=== PATIENT | female | born 1950 | race Asian ===

== ENCOUNTER → 2017-04-09 | Outpatient (CLI) | payer BC ==
--- NOTE | 2017-04-09 14:48 | DIAGNOSTIC IMAGING REPORT ---
LEFT ELBOW 3 VIEWS CLINICAL HISTORY: Left elbow pain. FINDINGS: 3 views of the left elbow are obtained. No prior studies are available for comparison at the time of dictation. The skeletal structures are osteopenic. No fracture is identified. Mild spurring is seen along the medial aspect of the joint space. The joint spaces are preserved. There is no joint effusion. A tiny enthesophyte is noted at the triceps insertion. Mild dorsal soft tissue swelling is noted. IMPRESSION: 1. No acute bony abnormality is seen in the left elbow. 2. Osteopenia and minimal degenerative change as above. Electronically signed by: Francisco Javier Fisher M.D. 04/09/2017 2:46 PM Dictated Date/Time: 04/09/2017 2:45 PM
== END | disposition home or self-care (01) ==
LOC: C.RAD1850 14:25
PROVIDERS: ATTEND Family Medicine
DX: M25.522 Pain in left elbow (principal); M85.80 Other specified disorders of bone density and structure, unspecified site

== ENCOUNTER → 2017-05-21 | Outpatient (CLI) | payer BC ==
--- NOTE | 2017-05-22 07:57 | MAMMOGRAPHY REPORT ---
BILATERAL DIGITAL SCREENING MAMMOGRAM TOMOSYNTHESIS WITH CAD: 05/21/2017 CLINICAL HISTORY: Routine screening. Patient has no complaints. TECHNIQUE: Breast tomosynthesis in addition to standard 2D mammography was performed. Current study was also evaluated with a Computer Aided Detection (CAD) system. COMPARISON: Comparison is made to exams dated: 03/15/2016 mammogram, 03/07/2016 mammogram, 03/04/2015 m ammogram, 01/12/2014 mammogram, 01/05/2013 mammogram, and 12/07/2011 mammogram - [facility] enter. BREAST COMPOSITION: The tissue of both breasts is heterogeneously dense, which may obscure small mas ses. FINDINGS: No suspicious mass, architectural distortion or cluster of microcalcifications is seen. IMPRESSION: ACR BI-RADS CATEGORY 1: NEGATIVE There is no mammographic evidence of malignancy. A 1 year screening mammogram is recommended. The pa tient will receive written notification of the results. Approximately 10% of breast cancers are not detected with mammography. A negative mammographic report should not delay biopsy if a clinically suggestive mass is present. Rhianna schwab/guillermo:05/21/2017 22:26:02 Rail Splitter: Emili MONDRAGON(Tito)(M), [facility] letter sent: Normal 1/2 BI-RADS Code: ACR BI-RADS Category 1: Negative
== END | disposition home or self-care (01) ==
LOC: C.MAMM 12:25
PROVIDERS: ATTEND Obstetrics & Gynecology
DX: Z12.31 Encounter for screening mammogram for malignant neoplasm of breast (principal)

== ENCOUNTER 2024-09-09 18:52 | Observation (INO) ==
[2024-09-09 19:34] LABS: Appearance Urine Clear (Clear); Bilirubin Urine Negative (Negative); Blood Urine Negative (Negative); Color Urine Yellow; Glucose Urine UA Negative (Negative); Ketones Urine Negative (Negative); Leukocyte Esterase Urine Negative (Negative); Nitrite Urine Negative (Negative); Protein Urine Negative (Negative); Specific Gravity Urine 1.009 (1.000-1.030); Urobilinogen Urine Negative (Negative); pH Urine 7.5 (4.5-7.5)
--- NOTE | 2024-09-09 19:34 | Emergency Department Note ---
Impression & Plan TIA (transient ischemic attack) ED Provider Note NAME: JACQUIE LERMA AGE: 74 SEX: F : 1950 ARRIVES VIA: Walk-In INFORMANT: Patient, ED PROVIDER(S): Andi Silva DO CHIEF COMPLAINT: Weakness HPI: The patient is a 74-year-old female who presented to the emergency department for weakness. The patient states that approximately 5:10 PM she noticed that she was having difficulty using her right leg. She states she tried to stand on it but it became very shaky and weak. She did not have any difficulty speaking. She had no facial droop or right arm weakness as far she can tell. She has a history of a stroke in the past. She does not know why she had the stroke. The patient presented to the emergency department immediately for further evaluation but she does note now that her symptoms are gone. ROS: See above HPI for pertinent positives & negatives. A total of 10 systems reviewed and were otherwise negative. PAST MEDICAL HISTORY: See Below PAST SURGICAL HISTORY: See Below FAMILY HISTORY: See Below SOCIAL HISTORY: See Below HOME MEDICATIONS: See Below ALLERGIES: See Below VITALS: See Below PHYSICAL EXAMINATION: GENERAL: Patient is awake alert in no acute distress patient is resting comfortably and showing no signs of anxiety EYES: The conjunctivae are clear. The pupils are round and reactive. EARS, NOSE, MOUTH AND THROAT: The nose is without any evidence of any deformity. NECK: The neck is nontender and supple. RESPIRATORY: Normal respiratory effort is noted there is no evidence of wheezing rhonchi or rales CARDIOVASCULAR: Regular rate and rhythm noted there no murmurs rubs or gallops normal S1 normal S2. GASTROINTESTINAL: The abdomen is soft. Abdomen is nontender. MUSCULOSKELETAL/EXTREMITIES: There is no evidence of gross deformity full range of motion is noted in the hips and shoulders. SKIN: There is no obvious evidence of any rash. There are no petechiae, pallor or cyanosis noted. NEUROLOGIC: Patient is awake alert and oriented x3. Gait was steady. Patient is able to hold each leg off of the bed for greater than 5 seconds. There was no facial droop. Speech was clear. MEDICAL DECISION MAKING: The patient is a 74-year-old female who presented to the emergency department for an evaluation of right leg weakness. The patient had an acute onset of right leg weakness. She was having difficulty ambulating. She did not have any speech changes or arm weakness. The patient has a history of stroke in the past. Given the patient's past history of stroke initially we are going to make the patient a stroke alert but the patient had no focal neurologic deficit and appears to have resolved prior to coming into the emergency department. I discussed the patient's laboratory and radiographic studies with her. The patient would appear to be a high risk TIA. For this reason I discussed her condition with the on-call [facility] hospitalist. The patient was agreeable with this plan. Triage Nursing notes reviewed. Prior medical records reviewed Vital Signs: reviewed and remarkable for no significant abnormalities Differential diagnosis: Infection, dehydration, metabolic abnormality, hypo/hyperglycemia, electrolyte disturbance, anemia, hypoxia, cardiac sources, intracerebral event, toxicologic, neurologic, as well as other pathologies. ER treatment provided: See below Diagnostics interpreted by me: ECG: EKG was obtained in the emergency department. My interpretation is normal sinus rhythm at 75 bpm. There is no ectopy. There was no acute ST segment abnormalities noted. Cardiac Monitoring: An order was placed for continuous cardiac monitoring. The monitor shows a rate of 77 bpm with sinus rhythm. Laboratory studies: As stated above and show below. Imaging studies: See below. Radiographic imaging was reviewed by myself Consultation(s): [facility]. Past Med/Surg History Problem List (Updated 09/09/24 @ 21:58 by Andi Silva DO) TIA (transient ischemic attack) (Acute) High cholesterol High blood pressure Sebaceous cyst Right forearm cellulitis (Acute) Right wrist pain (Acute) Medical History Stroke Back problem Surgical History History of removal of cyst (11/19/23) FINAL DIAGNOSIS Back, mid, excision: - Heavily inflamed epidermal cyst H/O colonoscopy (2020) H/O knee surgery (2008) Family History Sister Breast cancer Hypertension Uncle Colorectal cancer Mother Diabetes Social History Smoking Status: Never smoker Hx Alcohol Use: Yes Alcohol type: beer and wine Alcohol Intake Frequency: Monthly or Less Hx Substance Use: No Preferred Language: Argentine Communication Ability: Effective Underlay Stitcher Required: No Beliefs That Will Affect Care: None Current Living Situation: Spouse current occupational status: employed Feels Safe at Home: Yes Diet: regular during the past year weight has: remained stable Assistive Devices: None Allergies Allergies Allergy/AdvReac Type Severity Reaction Status Date / Time Penicillins Allergy Unknown RASH Verified 11/20/23 14:51 Sulfa (Sulfonamide Allergy Unknown RASH,THROAT Verified 11/20/23 14:51 Antibiotics) SWELLING Home Meds Home Medications Medication Instructions Recorded Confirmed No Known Home Medications 11/12/23 11/20/23 Results & Data (ED) Vital Signs Vital Signs - 24 hr 09/09/24 19:03 09/09/24 19:38 09/09/24 19:41 Temperature 36.8 C Temperature Source Temporal Artery Scan Pulse Rate 84 75 Pulse Rate from SpO2 Sensor Respiratory Rate 18 Respiratory Effort / Characteristics Non-Labored Respiratory Depth Normal Blood Pressure 160/96 H Blood Pressure Mean 117 Pulse Oximetry 96 98 Oxygen Delivery Method Room Air Room Air Sepsis Recent Fever Within 48 Hours No Sepsis New/Unexplained Change in Mental Status No Sepsis Action Taken by Nursing No Action Required 09/09/24 19:41 09/09/24 20:33 09/09/24 21:09 Temperature Temperature Source Pulse Rate 78 75 77 Pulse Rate from SpO2 Sensor 75 Respiratory Rate 20 16 18 Respiratory Effort / Characteristics Respiratory Depth Blood Pressure 164/108 H 129/90 139/90 Blood Pressure Mean 139 103 99 Pulse Oximetry 98 98 97 Oxygen Delivery Method Room Air Room Air Room Air Sepsis Recent Fever Within 48 Hours Sepsis New/Unexplained Change in Mental Status Sepsis Action Taken by Prison Medications Current Medication List: was personally reviewed by me Laboratory Data Attestation: I reviewed the patient's lab results. 09/09/24 19:20 09/09/24 19:20 Lab Results 09/09/24 09/09/24 09/09/24 Range/Units 19:19 19:20 19:25 WBC 5.55 (4.8-10.8) K/ul RBC 4.01 L (4.20-5.40) M/uL Hgb 12.0 (12.0-16.0) g/dl POC Hgb (12.0-16.0) g/dl Hct 35.9 L (37.0-47.0) % POC Hct (37-47) % MCV 89.5 (80.0-100.0) fL MCH 29.9 (25.0-34.0) pg MCHC 33.4 (32.0-36.0) g/dL RDW Std Deviation 42.0 (36.4-46.3) fL RDW Coeff of Gertrudis 12.7 (11.5-14.5) % Plt Count 281 (130-400) K/uL MPV 9.0 L (9.4-12.4) fL Immature Gran % (Auto) 0.2 % Neut % (Auto) 66.1 % Lymph % (Auto) 24.0 % [place] % (Auto) 7.4 % Eos % (Auto) 1.8 % Baso % (Auto) 0.5 % Neut # (Auto) 3.67 (1.40-6.50) K/uL Lymph # (Auto) 1.33 (1.20-3.40) K/uL [place] # (Auto) 0.41 (0.11-0.59) K/uL Eos # (Auto) 0.10 (0.00-0.50) K/uL Baso # (Auto) 0.03 (0.00-0.20) K/uL Immature Gran # (Auto) 0.01 (0.01-0.20) K/uL PT 9.9 (9.0-12.0) Seconds INR 0.9 (0.9-1.1) APTT 26 (21-31) Seconds PTT Ratio 1.0 POC Sodium (135-144) mmol/L Sodium 130 L (136-145) mmol/L POC Potassium (3.3-5.0) mmol/L Potassium 4.0 (3.5-5.1) mmol/L POC Chloride (101-112) mmol/L Chloride 96 L (98-107) mmol/L Carbon Dioxide 28 (21-32) mmol/L POC Total CO2 (24-31) mmol/L Anion Gap 6 (3-11) POC Anion Gap (16-25) mmol/L POC BUN (7-18) mg/dl BUN 16 (6-23) mg/dl Creatinine 0.74 (0.6-1.2) mg/dl POC Creatinine (0.6-1.3) mg/dl Est Cr Clr Drug Dosing 57.6 ml/min eGFR 84.85 BUN/Creatinine Ratio 21.6 H (10-20) Glucose 112 H (70-99(Fasting)) mg/dl POC Glucose (other) (70-99) mg/dl Calcium 9.5 (8.6-10.3) mg/dl POC Ioniz Calcium Parker (1.12-1.32) mmol/l Magnesium 2.1 (1.7-2.4) mg/dl Total Bilirubin 0.3 (0.2-1.0) mg/dl AST 19 (13-39) U/L ALT 10 (7-52) U/L Alkaline Phosphatase 79 (34-104) U/L Troponin I High Sens 7.3 (0-14) pg/ml Total Protein 7.7 (6.0-8.3) gm/dl Albumin 4.6 (3.4-5.0) gm/dl Globulin 3.1 (2.5-4.0) gm/dl Albumin/Globulin Ratio 1.5 (0.9-2) TSH 4.618 H (0.300-4.500) uIu/ml Free T4 0.94 (0.61-1.60) ng/dl Urine Color Yellow Urine Appearance Clear (Clear) Urine pH 7.5 (4.5-7.5) Ur Specific [place] 1.009 (1.000-1.030) Urine Protein Negative (Negative) Urine Glucose (UA) Negative (Negative) Urine Ketones Negative (Negative) Urine Blood Negative (Negative) Urine Nitrite Negative (Negative) Urine Bilirubin Negative (Negative) Urine Urobilinogen Negative (Negative) Ur Leukocyte Esterase Negative (Negative) 09/09/24 Range/Units 19:39 WBC (4.8-10.8) K/ul RBC (4.20-5.40) M/uL Hgb (12.0-16.0) g/dl POC Hgb 12.2 (12.0-16.0) g/dl Hct (37.0-47.0) % POC Hct 36 L (37-47) % MCV (80.0-100.0) fL MCH (25.0-34.0) pg MCHC (32.0-36.0) g/dL RDW Std Deviation (36.4-46.3) fL RDW Coeff of Gertrudis (11.5-14.5) % Plt Count (130-400) K/uL MPV (9.4-12.4) fL Immature Gran % (Auto) % Neut % (Auto) % Lymph % (Auto) % [place] % (Auto) % Eos % (Auto) % Baso % (Auto) % Neut # (Auto) (1.40-6.50) K/uL Lymph # (Auto) (1.20-3.40) K/uL [place] # (Auto) (0.11-0.59) K/uL Eos # (Auto) (0.00-0.50) K/uL Baso # (Auto) (0.00-0.20) K/uL Immature Gran # (Auto) (0.01-0.20) K/uL PT (9.0-12.0) Seconds INR (0.9-1.1) APTT (21-31) Seconds PTT Ratio POC Sodium 131 L (135-144) mmol/L Sodium (136-145) mmol/L POC Potassium 4.2 (3.3-5.0) mmol/L Potassium (3.5-5.1) mmol/L POC Chloride 95 L (101-112) mmol/L Chloride (98-107) mmol/L Carbon Dioxide (21-32) mmol/L POC Total CO2 25 (24-31) mmol/L Anion Gap (3-11) POC Anion Gap 16.0 (16-25) mmol/L POC BUN 15 (7-18) mg/dl BUN (6-23) mg/dl Creatinine (0.6-1.2) mg/dl POC Creatinine 0.8 (0.6-1.3) mg/dl Est Cr Clr Drug Dosing ml/min eGFR BUN/Creatinine Ratio (10-20) Glucose (70-99(Fasting)) mg/dl POC Glucose (other) 105 H (70-99) mg/dl Calcium (8.6-10.3) mg/dl POC Ioniz Calcium Parker 1.15 (1.12-1.32) mmol/l Magnesium (1.7-2.4) mg/dl Total Bilirubin (0.2-1.0) mg/dl AST (13-39) U/L ALT (7-52) U/L Alkaline Phosphatase (34-104) U/L Troponin I High Sens (0-14) pg/ml Total Protein (6.0-8.3) gm/dl Albumin (3.4-5.0) gm/dl Globulin (2.5-4.0) gm/dl Albumin/Globulin Ratio (0.9-2) TSH (0.300-4.500) uIu/ml Free T4 (0.61-1.60) ng/dl Urine Color Urine Appearance (Clear) Urine pH (4.5-7.5) Ur Specific [place] (1.000-1.030) Urine Protein (Negative) Urine Glucose (UA) (Negative) Urine Ketones (Negative) Urine Blood (Negative) Urine Nitrite (Negative) Urine Bilirubin (Negative) Urine Urobilinogen (Negative) Ur Leukocyte Esterase (Negative) Administered Medications Discontinued Medications Ioversol (Optiray 320 125ml) 118 ml IV ONCE ONE Stop: 09/09/24 19:51 Last Admin: 09/09/24 19:50 Dose: 118 ml Documented By: MAURICIO Imaging Data Attestation: I personally reviewed and interpreted this imaging study as follows: My Impression: 1 chest x-ray was obtained in the emergency department. My interpretation is no free air or definite infiltrate, final report below. CT the brain was obtained in the emergency department. My interpretation is no intracranial hemorrhage or mass effect, final report below Radiologist's Impression: Chest X-Ray 09/09/24 19:29 Exam(s): XR CXR 1 VIEW EXAM: XR Chest, 1 View CLINICAL HISTORY: neuro deficit, acute stroke suspected. TECHNIQUE: Frontal view of the chest. COMPARISON: 08/05/2024 FINDINGS: Lungs: No infiltrate. No atelectasis. No CHF. Pleural space: No pleural effusion. No pneumothorax. Heart: No cardiomegaly. Cardiac loop recorder. Mediastinum: Unremarkable. Normal mediastinal contour. Bones/joints: Unchanged. No acute fracture. IMPRESSION: No acute abnormality. Electronically signed by: Alex Palm M.D. 09/09/24 21:[address] 09/09/24 19:29 Exam(s): CT HEAD Without Contrast EXAM: CT Head Without Intravenous Contrast CLINICAL HISTORY: neuro deficit, acute stroke suspected. TECHNIQUE: Axial computed tomography images of the head/brain without intravenous contrast. CTDI is 37.42 mGy and DLP is 624.41 mGy-cm. Automated exposure control was utilized for the study. A dose lowering technique was utilized adhering to the principles of ALARA. COMPARISON: No relevant prior studies available. FINDINGS: Brain: Age-appropriate generalized atrophy. No acute stroke. Old right frontal subcortical white matter infarct. Old right caudate head lacunar infarct. Mild supratentorial periventricular and subcortical white matter changes. No acute hemorrhage or abnormal extra-axial fluid collection. Ventricles: No hydrocephalus. No midline shift. Bones/joints: Unremarkable. No acute fracture. Soft tissues: Unremarkable. Sinuses: Unremarkable as visualized. No acute sinusitis. IMPRESSION: No acute stroke or hemorrhage. Electronically signed by: Alex Palm M.D. 09/09/24 21:11 PM Head CTA 09/09/24 19:29 Exam(s): CTA HEAD With Contrast IV Amt: 119cc optiray 320 EXAM: CT Angiography Head With Intravenous Contrast CLINICAL HISTORY: neuro deficit, acute stroke suspected. TECHNIQUE: Axial computed tomographic angiography images of the head with intravenous contrast. CTDI is 11.37 mGy and DLP is 478.03 mGy-cm. Automated exposure control was utilized for the study. A dose lowering technique was utilized adhering to the principles of ALARA. 3D and MIP reconstructed images were created and reviewed. CONTRAST: Patient received 119cc optiray 320 of IV contrast COMPARISON: CT Brain 09-09-2024. FINDINGS: Right internal carotid artery: No acute abnormality. Intracranial segment is patent with no significant stenosis. No aneurysm. Right anterior cerebral artery: Unremarkable. No occlusion or significant stenosis. No aneurysm. Right middle cerebral artery: Unremarkable. No occlusion or significant stenosis. No aneurysm. Right posterior cerebral artery: Unremarkable. No occlusion or significant stenosis. No aneurysm. Right vertebral artery: Unremarkable as visualized. Left internal carotid artery: No acute abnormality. Intracranial segment is patent with no significant stenosis. No aneurysm. Left anterior cerebral artery: Unremarkable. No occlusion or significant stenosis. No aneurysm. Left middle cerebral artery: Unremarkable. No occlusion or significant stenosis. No aneurysm. Left posterior cerebral artery: origin. No occlusion or significant stenosis. No aneurysm. Left vertebral artery: Unremarkable as visualized. Basilar artery: Unremarkable. No occlusion or significant stenosis. No aneurysm. IMPRESSION: No large vessel occlusion. Electronically signed by: Alex Palm M.D. 09/09/24 21:17 PM Neck CTA 09/09/24 19:29 Exam(s): CTA NECK With Contrast IV Amt: 119cc optiray 320 EXAM: CT Angiography Neck With Intravenous Contrast CLINICAL HISTORY: neuro deficit, acute stroke suspected. TECHNIQUE: Routine carotid CT angiography protocol was performed with intravenous contrast. NASCET criteria using the distal ICAs for comparison were used for evaluation of stenoses. CTDI is 11.31 mGy and DLP is 478.03 mGy-cm. Automated exposure control was utilized for the study. A dose lowering technique was utilized adhering to the principles of ALARA. 3D and MIP reconstructed images were created and reviewed. CONTRAST: Patient received 119cc optiray 320 of IV contrast COMPARISON: None. FINDINGS: VASCULATURE: Right common carotid artery: Unremarkable. No occlusion or significant stenosis. No dissection. Right internal carotid artery: Mild calcified plaque at the carotid bulb without a hemodynamically significant stenosis. No dissection. Right external carotid artery: Unremarkable. No occlusion. Right vertebral artery: Unremarkable. No occlusion or significant stenosis. No dissection. Left common carotid artery: Unremarkable. No occlusion or significant stenosis. No dissection. Left internal carotid artery: Mild calcified plaque at the carotid bulb without a hemodynamically significant stenosis. No dissection. Left external carotid artery: Unremarkable. No occlusion. Left vertebral artery: Unremarkable. No occlusion or significant stenosis. No dissection. NECK: Bones/joints: Degenerative changes of the spine. No acute fracture. Soft tissues: Unremarkable. Lung apices: Clear. CAROTID STENOSIS REFERENCE USING NASCET CRITERIA: % ICA stenosis = (1 - narrowest ICA diameter/diameter of distal cervical ICA) x 100. Mild - <50% stenosis. Moderate - 50-69% stenosis. Severe - 70-94% stenosis. Near occlusion - 95-99% stenosis. Occluded - 100% stenosis. IMPRESSION: Mild calcified plaque at the bilateral carotid bulbs without a hemodynamically significant stenosis. Electronically signed by: Alex Palm M.D. 09/09/24 21:21 PM Discharge Plan Visit Data Chief Complaint: Leg Weakness, Bilateral Stated Complaint: RT LEG WEAKNESS ED Provider: Andi Silva Discharge Problem: TIA (transient ischemic attack) Patient Disposition: Being Evaluated by Hospitalist Forms Stand Alone Forms: My [facility] Prescriptions Prescriptions: No Action No Known Home Medications Referrals Referrals: Osmin Sharp MD [Primary Care Provider] -
[2024-09-09 19:36] LABS: Basophils # (auto) 0.03 K/uL (0.00-0.20); Basophils % (auto) 0.5 %; Eosinophils % (auto) 1.8 %; Hematocrit (blood only) 35.9 % (37.0-47.0); Immature Granulocytes # (auto) 0.01 K/uL (0.01-0.20); Immature Granulocytes % (auto) 0.2 %; Lymphocytes # (auto) 1.33 K/uL (1.20-3.40); Mean Corpuscular Hemoglobin 29.9 pg (25.0-34.0); Mean Corpuscular Hgb Conc 33.4 g/dL (32.0-36.0); Mean Corpuscular Volume 89.5 fL (80.0-100.0); Monocytes # (auto) 0.41 K/uL (0.11-0.59); Monocytes % (auto) 7.4 %; Neutrophils # (auto) 3.67 K/uL (1.40-6.50); Neutrophils % (auto) 66.1 %; Platelet Count 281 K/uL (130-400); RDW Coefficient of Variation 12.7 % (11.5-14.5); Red Blood Count 4.01 M/uL (4.20-5.40); White Blood Count 5.55 K/ul (4.8-10.8)
[2024-09-09] MEDS: OPTIRAY 320 125ml IV ONE (19:50)
[2024-09-09 19:52] LABS: iSTAT Creatinine 0.8 mg/dl (0.6-1.3); iSTAT Hemoglobin 12.2 g/dl (12.0-16.0); iSTAT Ionized Calcium 1.15 mmol/l (1.12-1.32); iSTAT Potassium 4.2 mmol/L (3.3-5.0)
[2024-09-09 19:55] LABS: Albumin Globulin Ratio 1.5 (0.9-2); Albumin Level 4.6 gm/dl (3.4-5.0); BUN Creatinine Ratio 21.6 (10-20); Bilirubin,Total 0.3 mg/dl (0.2-1.0); Calcium 9.5 mg/dl (8.6-10.3); Creatinine Clr Calc Pharmacy 57.6 ml/min; Globulin 3.1 gm/dl (2.5-4.0); Magnesium 2.1 mg/dl (1.7-2.4); Total Protein 7.7 gm/dl (6.0-8.3)
[2024-09-09 20:01] LABS: Troponin I High Sensitivity 7.3 pg/ml (0-14)
[2024-09-09 20:11] LABS: Thyroid Stimulating Hormone 4.618 uIu/ml (0.300-4.500)
[2024-09-09 20:30] LABS: INR 0.9 (0.9-1.1); Partial Thromboplastin Time 26 Seconds (21-31); Prothrombin Time 9.9 Seconds (9.0-12.0)
[2024-09-09 20:46] LABS: T4 Free Thyroxine 0.94 ng/dl (0.61-1.60)
--- NOTE | 2024-09-09 21:11 | CT Scan Report ---
Exam(s): CT HEAD Without Contrast EXAM: CT Head Without Intravenous Contrast CLINICAL HISTORY: neuro deficit, acute stroke suspected. TECHNIQUE: Axial computed tomography images of the head/brain without intravenous contrast. CTDI is 37.42 mGy and DLP is 624.41 mGy-cm. Automated exposure control was utilized for the study. A dose lowering technique was utilized adhering to the principles of ALARA. COMPARISON: No relevant prior studies available. FINDINGS: Brain: Age-appropriate generalized atrophy. No acute stroke. Old right frontal subcortical white matter infarct. Old right caudate head lacunar infarct. Mild supratentorial periventricular and subcortical white matter changes. No acute hemorrhage or abnormal extra-axial fluid collection. Ventricles: No hydrocephalus. No midline shift. Bones/joints: Unremarkable. No acute fracture. Soft tissues: Unremarkable. Sinuses: Unremarkable as visualized. No acute sinusitis. IMPRESSION: No acute stroke or hemorrhage. Electronically signed by: Alex Palm M.D. 09/09/24 21:11 PM
--- NOTE | 2024-09-09 21:17 | CT Scan Report ---
Exam(s): CTA HEAD With Contrast IV Amt: 119cc optiray 320 EXAM: CT Angiography Head With Intravenous Contrast CLINICAL HISTORY: neuro deficit, acute stroke suspected. TECHNIQUE: Axial computed tomographic angiography images of the head with intravenous contrast. CTDI is 11.37 mGy and DLP is 478.03 mGy-cm. Automated exposure control was utilized for the study. A dose lowering technique was utilized adhering to the principles of ALARA. 3D and MIP reconstructed images were created and reviewed. CONTRAST: Patient received 119cc optiray 320 of IV contrast COMPARISON: CT Brain 09-09-2024. FINDINGS: Right internal carotid artery: No acute abnormality. Intracranial segment is patent with no significant stenosis. No aneurysm. Right anterior cerebral artery: Unremarkable. No occlusion or significant stenosis. No aneurysm. Right middle cerebral artery: Unremarkable. No occlusion or significant stenosis. No aneurysm. Right posterior cerebral artery: Unremarkable. No occlusion or significant stenosis. No aneurysm. Right vertebral artery: Unremarkable as visualized. Left internal carotid artery: No acute abnormality. Intracranial segment is patent with no significant stenosis. No aneurysm. Left anterior cerebral artery: Unremarkable. No occlusion or significant stenosis. No aneurysm. Left middle cerebral artery: Unremarkable. No occlusion or significant stenosis. No aneurysm. Left posterior cerebral artery: origin. No occlusion or significant stenosis. No aneurysm. Left vertebral artery: Unremarkable as visualized. Basilar artery: Unremarkable. No occlusion or significant stenosis. No aneurysm. IMPRESSION: No large vessel occlusion. Electronically signed by: Alex Palm M.D. 09/09/24 21:17 PM
--- NOTE | 2024-09-09 21:22 | CT Scan Report ---
Exam(s): CTA NECK With Contrast IV Amt: 119cc optiray 320 EXAM: CT Angiography Neck With Intravenous Contrast CLINICAL HISTORY: neuro deficit, acute stroke suspected. TECHNIQUE: Routine carotid CT angiography protocol was performed with intravenous contrast. NASCET criteria using the distal ICAs for comparison were used for evaluation of stenoses. CTDI is 11.31 mGy and DLP is 478.03 mGy-cm. Automated exposure control was utilized for the study. A dose lowering technique was utilized adhering to the principles of ALARA. 3D and MIP reconstructed images were created and reviewed. CONTRAST: Patient received 119cc optiray 320 of IV contrast COMPARISON: None. FINDINGS: VASCULATURE: Right common carotid artery: Unremarkable. No occlusion or significant stenosis. No dissection. Right internal carotid artery: Mild calcified plaque at the carotid bulb without a hemodynamically significant stenosis. No dissection. Right external carotid artery: Unremarkable. No occlusion. Right vertebral artery: Unremarkable. No occlusion or significant stenosis. No dissection. Left common carotid artery: Unremarkable. No occlusion or significant stenosis. No dissection. Left internal carotid artery: Mild calcified plaque at the carotid bulb without a hemodynamically significant stenosis. No dissection. Left external carotid artery: Unremarkable. No occlusion. Left vertebral artery: Unremarkable. No occlusion or significant stenosis. No dissection. NECK: Bones/joints: Degenerative changes of the spine. No acute fracture. Soft tissues: Unremarkable. Lung apices: Clear. CAROTID STENOSIS REFERENCE USING NASCET CRITERIA: % ICA stenosis = (1 - narrowest ICA diameter/diameter of distal cervical ICA) x 100. Mild - <50% stenosis. Moderate - 50-69% stenosis. Severe - 70-94% stenosis. Near occlusion - 95-99% stenosis. Occluded - 100% stenosis. IMPRESSION: Mild calcified plaque at the bilateral carotid bulbs without a hemodynamically significant stenosis. Electronically signed by: Alex Palm M.D. 09/09/24 21:21 PM
--- NOTE | 2024-09-09 21:31 | XRay Report ---
Exam(s): XR CXR 1 VIEW EXAM: XR Chest, 1 View CLINICAL HISTORY: neuro deficit, acute stroke suspected. TECHNIQUE: Frontal view of the chest. COMPARISON: 08/05/2024 FINDINGS: Lungs: No infiltrate. No atelectasis. No CHF. Pleural space: No pleural effusion. No pneumothorax. Heart: No cardiomegaly. Cardiac loop recorder. Mediastinum: Unremarkable. Normal mediastinal contour. Bones/joints: Unchanged. No acute fracture. IMPRESSION: No acute abnormality. Electronically signed by: Alex Palm M.D. 09/09/24 21:30 PM
--- NOTE | 2024-09-09 22:32 | History & Physical Report ---
Date of Service September 09, 2024 Assessment & Plan (1) High blood pressure: (2) High cholesterol: (3) Transient weakness of right lower extremity: Plan Patient is a 74 y/o F w/ PMHx of HTN, HLD, Hx of CVA in 2020 (follows neurology [facility]), and Hx of lumbar injury who comes to ED due to weakness and shakiness in her right leg that occurred at around 5:10 pm today. Admitted for work up of CVA versus TIA versus lumbar radiculopathy. Transient weakness of right LE - Patient w/ known hx of CVA, was told by PCP and neurologist to come in due to her sxs earlier today - Head imaging negative; neck CTA with mild plaque that does not cause significant changes in flow - Patient stated that she still felt heaviness in her right LE when I walked in the room but then noted that maybe it resolved, so still possible this may have been a TIA, although hx of lumbar trauma could make lumbr radiculopathy another potential cause - Will order brain MRI - Will order lumbar spine XR - Will order TTE - Will order fasting lipid profile and Hgb A1c - Continue ASA 81 mg, increase Rosuvastatin dose to 20 mg - PT/OT consulted - Admit to PCU HTN - Continue home losartan 25 mg HLD - Rosuvastatin as mentioned above Chronic hyponatremia - Sodium of 130 on admission labs - Patient has had low sodium consistently in previous labs done by PCP as well - Ordered U/Osm, serum Osm, and urine sodium - Monitor am labs Dispo: PCU/Tele Fluids: none VTE ppx: SCD Code Status: FULL CODE History of Present Illness Chief Complaint: Right leg weakness Primary Care Provider: Osmin Sharp MD Patient is a 74 y/o F w/ PMHx of HTN, HLD, Hx of CVA in 2020 (follows neurology [facility]), and Hx of lumbar injury who comes to ED due to weakness and shakiness in her right leg that occurred at around 5:10 pm today. Patient states that she was walking back to her car after working out in a gym and started feeling shakiness in her right LE as well as mild weakness, due to which she had to lean against a nearby wall for support. Symptoms resolved spontaneously in 30 seconds. Denies having weakness in other extremities, vision changes, headache, trouble with speech, chest pain, SOB, dizziness, LOC, or any other symptom. Patient has hx of CVA in 2020 that involved her left UE but has minimal to no residual sxs and follows neurology in [facility]. Other hx remarkable for lumbar injury a few years ago that was managed conservatively (no surgery). When evaluated at bedside, patient states she feels some residual heaviness in her right LE, but when asked to lift it against gravity, patient states "maybe it's gone now". ED Course: Given 243 mg ASA to complete 324 mg aspirin dose (takes ASA 81 mg daily) Labs/Imaging: CBC w/o leukocytosis, Hgb of 12 (baseline), and plt of 281. CMP remarkable for hyponatremia of 130 and no other electrolyte abnormalities, renal markers wnl, LFTs unremarkable. U/S unremarkable. Head CT and CTA negative for acute changes, Neck CTA w/ mild plaque in b/l carotid bulbs. Medical History: [Reviewed] Medications: [Reviewed] Surgical History: [Reviewed] Family history: [Reviewed] Allergies: [Reviewed] Social History: [Reviewed] Allergies Allergy/AdvReac Type Severity Reaction Status Date / Time Penicillins Allergy Unknown RASH Verified 11/20/23 14:51 Sulfa (Sulfonamide Allergy Unknown RASH,THROAT Verified 11/20/23 14:51 Antibiotics) SWELLING Home Medications Medication Instructions Recorded Confirmed Type losartan 25 mg tablet 25 mg PO DAILY 09/09/24 09/09/24 History rosuvastatin 10 mg tablet 10 mg PO HS 09/09/24 09/09/24 History Past Med/Surg History Problem List (Updated 09/09/24 @ 22:43 by Lisa Castillo MD) Transient weakness of right lower extremity TIA (transient ischemic attack) (Acute) High cholesterol High blood pressure Sebaceous cyst Right forearm cellulitis (Acute) Right wrist pain (Acute) Medical History Stroke Back problem Surgical History History of removal of cyst (11/19/23) FINAL DIAGNOSIS Back, mid, excision: - Heavily inflamed epidermal cyst H/O colonoscopy (2020) H/O knee surgery (2008) Family History Sister Breast cancer Hypertension Uncle Colorectal cancer Mother Diabetes Social History Smoking Status: Never smoker Hx Alcohol Use: No Hx Substance Use: No Preferred Language: Citizen Of [place] Communication Ability: Effective Reconsignment Clerk Required: No Beliefs That Will Affect Care: None Current Living Situation: Spouse current occupational status: employed Feels Safe at Home: Yes Safety Concerns: Feels Safe At This Time Diet: regular during the past year weight has: remained stable Assistive Devices: Glasses Review of Systems Review of Systems: As per HPI Physical Exam Physical Exam: GENERAL: AAOx4, afebrile, NAD HEAD: atraumatic, normocephalic EYES: FUAD, EOM intact, no visual deficits, non injected conjunctiva THROAT: normal to visual inspection CHEST: symmetric expansions w/ respirations CARDIO: RRR, no r/m/g PULMONARY: CTA b/l, normal respiratory effort, no respiratory distress GI: soft, non tender, non distended EXTREMITIES: no swelling or calf tenderness b/l SKIN: no rashes NEURO: normal speech, ROM normal, strength 5/5 in all extremities, no changes in sensorium, tongue remains central w/ protrusion Results & Data Results & Data Vital Signs (Past 12 Hours) Vital Signs Temp Pulse Resp BP Pulse Ox O2 Del Method 09/09/24 21:09 77 18 139/90 97 Room Air 09/09/24 20:33 75 16 129/90 98 Room Air 09/09/24 19:41 78 20 164/108 H 98 Room Air 09/09/24 19:41 75 09/09/24 19:38 98 Room Air 09/09/24 19:03 36.8 C 84 18 160/96 H 96 Room Air Supervising Physician Co-Signing Physician Notes Attending addendum: I have physically seen this patient, have supervised the medical residents activities, and agree with the H&P unless as otherwise noted. Assessment and Plan: The patient is a 74-year-old female with a past medical history including hy pertension, and hyperlipidemia, who presents to the emergency department after developing about 30 seconds of right lower extremity weakness and shakiness, after she had been sitting doing desk work most of the day. She denies any other focal symptoms. Has had no previous occurrence of these types of symptoms. She does have a history of previous mild back injury, but has not had any interventions performed. #Right lower extremity transient weakness- The patient will be admitted to telemetry for serial cardiac enzymes, serial EKG's, cardiac rhythm monitoring and a 2-D echocardiogram with Dopplers. CT scan head negative CTA head and neck showing mild plaquing of the bilateral carotid bulbs, otherwise negative Patient typically takes aspirin 81 mg daily, and will give an additional 324 mg now Stroke without thrombolytic order set Consult PT/OT/speech/neurology Order MRI brain without contrast Will order x-ray of lumbar spine, pelvis and hip to assess for possible orthopedic cause of symptoms Check hemoglobin A1c #Hyperlipidemia- Increase continue rosuvastatin 10 to 20 mg at bedtime Check a fasting lipid panel #Hypertension- Hold losartan for permissive hypertension #Hyponatremia- Sodium 130 on admission Check serum osmolality and urine osmolality along with urine sodium Resident Activity Tracking Resident Involvement: Resident Care Provided Care Provided: Adult Hospital Medicine
[2024-09-09] MEDS: ASPIRIN 81 MG CHEW PO STA (22:34)
[2024-09-09] MEDS: FAMOTIDINE 20 MG TAB PO ONE (22:54)
[2024-09-10] MEDS ORDERED: ACETAMINOPHEN 325 MG TAB PO PRN (00:29)
[2024-09-10] MEDS ORDERED: PHARMACIST DISCHARGE MED REC CONSULT PRN (00:29)
[2024-09-10] MEDS ORDERED: POLYETHYLENE (MIRALAX) 17 GM PACK PO PRN (00:29)
[2024-09-10] MEDS ORDERED: ONDANSETRON INJ 2 MG/ML 2 ML VIAL IV PRN (00:29)
--- OUTSIDE RECORDS SUMMARY | 2024-09-10 02:55 | External Medical Summary | Continuity of Care Document ---
Author Name Unknown Organization [address] Address [address] [place], [place] [id number] Care Team Providers Care Sharples Machine Operator Name Role Phone Osmin Sharp Primary Care Physician [phone] Encounter [facility] [id number] Date(s): 08/05/24 - 08/05/[email or web address] [address] [phone] Encounter Diagnosis Body mass index [BMI] 22.0-22.9, adult(Discharge Diagnosis) - 08/05/24 Cough(Discharge Diagnosis) - 08/05/24 Discharge Disposition: Home or Self Care Attending Physician: ARGELIA Brown Danielle B Allergies, Adverse Reactions, Alerts Substance Criticality Severity Reaction Reaction Severity Status penicillin rash Active lisinopril cough Active sulfa drugs swelling Active Allergy Not found in Search 1 Active 1hair dye- drapery head former jv Assessment and Plan Extracted from: Title:Acute Visit Note Author:ARGELIA Brown Dani elle B Date:08/05/24 1.Cough Suspect viral cough at this time. POC triplexper patient requestand was negative for flu A, flu B and COVID. Will get chest x-ray today per patient request. Recommended the patient startMucinex. Allergies and home medications reviewed. Discussed desired effects, potential side effects, how to administer the medication. -Follow-up if symptoms worsen or fail to improve. -Patient verbalizes understanding regarding plan of care and all questions answered. Immunizations Given and Recorded Vaccine Date Status Refusal Reason RSV vaccine, preF A-preF B, recombinant 06/06/24 R ecorded influenza virus vaccine, inactivated 06/06/24 Isaiah rded influenza virus vaccine, inactivated 05/11/23 Isaiah rded influenza virus vaccine, inactivated 05/30/21 Give n influenza virus vaccine, inactivated 06/06/20 Give n influenza virus vaccine, inactivated 05/26/18 Isaiah rded influenza virus vaccine, inactivated 06/04/16 Isaiah rded tetanus/diphtheria/pertuss, acel (Tdap) 03/13/23 G iven tetanus/diphtheria/pertuss, acel (Tdap) 06/26/13 G iven SARS-CoV-2 mRNA (phoeben 5y-11y) 06/27/21 Isaiah rded SARS-CoV-2 (COVID-19) mRNA BNT-162b2 vax 06/21/21 Recorded SARS-CoV-2 (COVID-19) mRNA BNT-162b2 vax 1 11/14/20 Recorded SARS-CoV-2 (COVID-19) mRNA BNT-162b2 vax 2 10/24/20 Recorded zoster vaccine, inactivated 05/19/21 Given zoster vaccine, inactivated 03/04/21 Given pneumococcal 23-valent vaccine 06/24/18 Given pneumococcal 13-valent vaccine 07/23/16 Given zoster vaccine live 01/12/14 Given influenza virus vaccine, H1N1 3 09/21/09 Recorded 1Result Comment: 2021-03-04: Historical information-source unspecified 2Result Comment: 2021-03-04: Historical information-source unspecified 3Result Comment: 2021-03-04: Historical information-source unspecified Medications Aspirin Low Dose 81 mg oral delayed release tablet Start: 07/17/21 4:02:00 PM EST, 1 tab, PO, Daily Start Date: 07/17/21 Status: Ordered Calcium 600+D oral tablet Start: 04/01/18 11:56:00 AM EDT, 1 tab, PO, Daily Start Date: 04/01/18 Status: Ordered Chondroitin-Glucosamine Start: 04/01/18 11:55:00 AM EDT, 1 cap, PO, Daily Start Date: 04/01/18 Status: Ordered Co Q-10 Start: 08/30/22 3:02:00 PM EST Start Date: 08/30/22 Status: Ordered Crestor 10 mg oral tablet Start: 03/26/24 8:20:00 AM EDT, 1 tab, PO, Daily, Disp# 90 tab Start Date: 03/26/24 Status: Ordered losartan 25 mg oral tablet Start: 02/26/24 11:06:00 AM EDT, 1 tab, PO, Daily, Disp# 90 tab, Refills: 3, Pharmacy: [id number] Start Date: 02/26/24 Status: Ordered multivitamin Start: 07/23/16 8:12:00 AM EST, 1 tab, PO, Daily Start Date: 07/23/16 Status: Ordered Vitamin D3 Start: 07/23/16 8:12:00 AM EST, 2,000 Int_Unit =, PO, Daily Start Date: 07/23/16 Status: Ordered Mental Status 08/05/24 Barriers to Learning one year None evide nt Mandatory Health Literacy Documentation Yes Health Literacy Communication Barriers N ever Primary Language Vietnamese Problem List Condition Confirmation Course Effective Dates Status H ealth Status Informant LINNEA positive 1, 2 Confirmed Active CAD in [place] artery 3 Confirmed Active CVA (cerebral vascular accident) 4 Confirmed 07/11/21 Active Hyperlipemia Confirmed Active Fatty liver Confirmed Active Hip pain 5 Confirmed Active Hypertension Confirmed Active Impaired fasting glucose Confirmed Active Dermatitis Confirmed Active Knee pain 6 Confirmed Active LBP radiating to left leg Confirmed Active Leukopenia Confirmed Active Loss of taste Confirmed Active Wrist pain Confirmed Active Past history of procedure 7 Confirmed Active Postmenopausal Confirmed Active Thyroid nodule 8, 9, 10 Confirmed Active PVC (premature ventricular contraction) Confirmed Active Vitamin D insufficiency Confirmed Active 1Saw Dr. Lerma, was told no inflammatory arthritis 2also had elevated ESR. saw rheumatology - was told no inflammatory arthritis. 3sees Dr. Araya 4brain MRI on 07/11/2021 in [facility] showed small acute infarctin right centrum semiovale and preventral gyrus: caused left arm weakness. 5left 6left [address]59: normal 8US in 06/2106: No significant abnormality is identified. There has been no change from 07/13/2013. No need fro further testing. 9thyroid nodules stable for a few year. will repeat in 2 years 10US in 06/2013: several small noduels. largest 5mm Diagnosis Diagnosis Type Effective Dates Health Status Cl inical Service Informant Cough Discharge Diagnosis 08/05/24 Non-Specified Body mass index [BMI] 22.0-22.9, adult Discharge Diagnosis 08/05/24 Non-Specified Procedures Procedure Date Related Diagnosis Body Site Status Bone density scan 1 07/13/24 Compl eted Hemorrhoidectomy 2 11/2023 Comple jay Mammogram - screening 3 08/28/22 C ompleted X-ray LT ankle 4 01/01/22 Complete d Implantation of insertable l oop recorder 09/28/[address] angiography of head and n evaristo with contrast 5 07/12/21 Completed ECHO TRANSTHORACIC 6 07/12/21 Comp leted MRI of brain with and withou t contrast 7 07/11/21 Completed MRI of cervical and lumbar s pine without contrast 8 07/11/21 Completed Bone density scan 9 06/27/21 Compl eted Mammogram - screening 10 03/08/21 Completed Mammogram 11 09/29/19 Completed Colonoscopy 12 06/18/[address] of abdomen and pelvis 13 06/02/19 Completed Mammogram 14 07/16/18 Completed Mammogram - screening 15 05/21/17 Completed Colonoscopy 16 04/19/17 Completed Elbow X-ray-left 17 04/09/17 Compl eted Cervical cytology brush 18 08/08/16 Completed US - Ultrasound of thyroid gland 19 07/25/16 Completed Mammogram 20 03/15/16 Completed Mammogram 21 03/07/16 Completed Wrist X-ray 22 11/15/15 Completed Right wrist x-ray 23 10/28/15 Comp leted Venous doppler 24 10/28/15 Complet ed Mammogram 25 03/04/15 Completed Procedure 26 03/02/15 Completed Procedure 27 01/19/14 Completed Mammogram - screening 28 01/12/14 Completed Arthroscopy of knee 29 11/26/08 Co mpleted Colonoscopy 30 07/21/07 Completed Jaw surgery 1984 Completed Tonsillectomy 1967 Completed 1AP SPine L1-L4 T Score 0.2 Femur Neck Left T Score -1.4 Femur Neck Right T Score -1.7 Femur Total Left T Score -1.5 Femur Total Right T Score -1.3 Z Score 0.2 Major Osteoporotic 9.7% Hip 2.0% 2Performed in [place] 3There is no mammographic evidence of malignancy. A 1 year screening mammogram is recommended (08/29/2023) 4No acute fracture or dislocation Mild soft tissue swelling with small joint effusion 51. noncontrast CT of the head redemonstrates known right centrum seiovale acute infarct with expected evolution. there is no additional or enlarging acute ifarct. no intracranial hemorrhage. 2. CTA of the head demonstrates no significant stenosis, vessel cut off, or aneurysm 3. CTA of the neck demonstrates nosignificant stenosis, pseudoaneurysm, or dissection 6-calculated LV ejection Fraction=58% (three dimensional volumes) -the right ventricular cavity size is normal -the right ventricular systolic function is normal -the left ventricular diastolic function is mildly abnormal (grade I) -there is no significant aortic regurgitation -trace mitral regurgitation is present -no pericardial effusion is noted -normal IVC size and collapsability with inspiration indicates a normal right atrial pressure of 3 mmHg. Positive bubble study with right to left shunting suggesting presence of PFO 7small acute infarct involving the right centrum semiovale and precentral gyrus. no associated hemorrhage, no significant mass effect 8congentially small cervical spinal canal with mild stenosis aggravated by disc osteophyte complexesas described. there is no intrinsic cord abnormality identified 9T-score of -1.9 10 year of probabilty of fracture: Major Osteoporotic 18.1% Hip 3.6% Population [place] (caucasion) Based on [place] (right) neck BMD 10Impression: AACR BI-RADS CATEGORY 2: BENIGN There is no mammographic evidence of malignancy. A 1 year screening mammogram is recommended. 11IMPRESSION: ACR BI-RADS CATEGORY 2 : BENIGN There is no mammographic evidence of malignancy. A 1 year screening mammogram is recommended. 12Diverticulosis in the ascending colon. No specimens collected. 13Impression: Significant bowel wall thickening with mild infiltration of the pericolonic fat involving the splenic flexure and descending colon. The findings are indicative a nospecific colitis. 14there is no evidence of malignancy. 1 year screening is recommended 15Impression: There is no mammographic evidence of malignancy. A 1 year screening mammogram is recommended. The patient will receive written notification of the results. 16The entire examined colon is normal No specimens collected 17No acute bony abnormality is seen in the left elbow Osteopenia and minimal degenerative change as in report 18Negative for intraepithelial lesion or malignancy. 19Impression: No significant abnormality is identified. There has been no change from 07/13/2013. 20The right superior breast asymmetry effaces on the additional views, without corresponding sonographic abnormality evident. The asymmetry is benign and most compatible with nomal overlapping fibroglandular tissue. There is no mammographic or targeted sonographic evidence of malignancy. A 1 year screening mammogram is recommended. The patient has been verbally notified. 21Right superior breast asymmetry, for which additional imaging evaluation is recommended. The patient will be called to schedule an appt. 22Negative study. 23Impression: slight dorsal displacement of the distal ulna with respect to the radius. A subluxationat the leel of the distal radial ulnar joint cannot be excluded. Clinical correlation in this regard is advocated. 24Impression: No evidence of right upper extremity DVT. 25No mammographic evidence of malignancy. Repeat in 1 yr. 26Negative study with no evidence of DVT in the lower extremities 27L diagnostic mammo - 1 yr screening recommended 28asymmertry in L breast indeterminate, additional views recommended 29left 30normal Results Laboratory List Name Date FluA/B+SARS CoV2 Triplex POC Outpt. 07/26 09/18 Most recent to oldest [Reference Range]: 1 Rapid Influenza A, POC Negative 1 (08/07/24 10:28 AM) Rapid Influenza B, POC Negative (08/07/24 10:28 AM) Rapid Influenza A Screen Ref Range Negat jim (08/07/24 10:28 AM) Rapid Influenza B Screen Ref Range Negat jim (08/07/24 10:28 AM) COVID-19 Coronavirus Antigen POC Negativ e 2 (08/07/24 10:28 AM) 1Result Comment: Performed at: [address] [place] [address] 2Result Comment: Positive results indicate the presence of viral antigens, but clinical correlation with patient history and other diagnostic information is necessary to determine infection status. Positive results do not rule out bacterial infection or co-infection with other viruses. The agent detected may not bethe definite cause of disease. Negative results should be treated as presumptive, do not rule out SARS-CoV-2 infection and should not be used as the sole basis for treatment or patient management decisions, including infection control decisions. Negative results should be considered in the context of a patients recent exposures, history and the presence of clinical signs and symptoms consistent with COVID-19, and confirmed with a molecular assay, if necessary, for patient management. Performed at: [address] [place] [address] Vital Signs Most recent to oldest [Reference Range]: 1 Height 166.2 cm (08/05/24 10:31 AM) Patient Weight 61.0 kg (08/05/24 10:31 AM) Body Mass Index 22.08 kg/m2 (08/05/24 10:31 AM) Temperature [36.5-37.9 DegC] 37.5 DegC (08/05/24 10:31 AM) Heart Rate 95 bpm (08/05/24 10:31 AM) Respiratory Rate 19 br/min (08/05/24 10:31 AM) Blood Pressure 108/70mmHg (08/05/24 10:31 AM) Social History Social History Type Response Smoking Status Never smoked cigaret luis antonio Sex Sex Representation Female (finding) FCM Outpt Note * ARGELIA Brown Danielle B: PERFORM Event Display: FCM Outpt Note Authored Date: Chief Complaint Sore throat, productive cough with yellow mucous, & nasal congestion since Saturday07/31/24. History of Present Illness Patient is a 74-year-old femalehere fornasal congestion andproductive coughx 6 days.Mucus is thick and colored. Has been afebrilebut experiencingchills. Denies shortness of breath, chest pain, palpitations, wheezing, sore throat, ear pain. Review of Systems Negative unless stated in HPI. Physical Exam Vitals & Measurements T:37.5C HR:95(Monitored) RR:19 BP:108/70 SpO2:98% HT:166.2cm WT:61.0kg WT:61.000kg(Dosing) BMI:22.08 PHQ2 Data(Data Documented on:08/05/2024 10:31) Emotional health assessment NEGATIVE CONSTITUTIONAL: Well-developed, well nourished. No acute distress. NEUROLOGICAL: Patient alert, orientated, memory intact. Gait steady. HEENT: Head is normocephalic. Eyes- symmetrical, no erythema or discharge. Ears- Canals without erythema or discharge. Tympanic membrane intact, no erythema or effusion present. Nares- are patent bilaterally, no discharge noted. Oral- Oropharynx is clear, no erythema or exudate. Oral mucosa pink and moist. Lips are pink and moist, no lesions. Neck- Supple, no lymphadenopathy. LUNGS: Respirations even and unlabored, chest expansion symmetrical. Lung sounds clear in all lobes, no wheezing, crackles, or adventitious breath sounds. HEART: Rate and rhythm regular. No cardiac murmur, click, or rub noted. ABDOMEN: Soft, nontender. Bowel sounds active in all four quadrants. MUSCULOSKELETAL/EXTREMITIES: Extremities are intact, no redness or edema noted of upper or lower extremity. INTEGUMENTARY: Skindry, warm to touch. No rash, wounds, lesions noted on visible skin. PSYCHOSOCIAL: Calm and cooperative, interacts appropriately withstaff. Assessment/Plan 1.Cough Suspect viral cough at this time. POC triplexper patient requestand was negative for flu A, flu B and COVID. Will get chest x-ray today per patient request. Recommended the patient startMucinex. Allergies and home medications reviewed. Discussed desired effects, potential side effects, how to administer the medication. -Follow-up if symptoms worsen or fail to improve. -Patient verbalizes understanding regarding plan of care and all questions answered. Problem List/Past Medical History Ongoing LINNEA positive CAD in [place] artery CVA (cerebral vascular accident) Dermatitis Fatty liver Hip pain Hyperlipemia Hypertension Impaired fasting glucose Knee pain LBP radiating to left leg Leukopenia Loss of taste Past history of procedure Postmenopausal PVC (premature ventricular contraction) Thyroid nodule Vitamin D insufficiency Wrist pain Resolved Bright red rectal bleeding GERD Olecranon bursitis Pain, abdominal, LLQ Rheumatic fever Procedure/Surgical History Bone density scan| Service Date: 07/13/2024Hemorrhoidectomy| Service Date: 11/2023Mammogram - screening| Service Date: 08/28/2022X-ray LT ankle| Service Date: 01/01/2022Implantation ofinsertable loop recorder| Service Date: 09/28/2021ECHO TRANSTHORACIC| Service Date: 07/12/2021T angiography of head and neck with contrast| Service Date: 07/12/2021MRI of brain with and without contrast| Service Date: 07/11/2021MRI of cervical and lumbar spine without contrast| ServiceDate: 07/11/2021one density scan| Service Date: 06/27/2021Mammogram - screening| Service Date: 03/08/2021Mammogram| Service Date: 09/29/2019Colonoscopy| Service Date: 06/18/2019CT of abdomen and pelvis| Service Date: 06/02/2019Mammogram| Service Date: 07/16/2018Mammogram - screening| Service Date: 05/21/2017Colonoscopy| Service Date: 04/19/2017Elbow X-ray-left| ServiceDate: 04/09/2017Cervical cytology brush| Service Date: 08/08/2016US - Ultrasound of thyroid gland| Service Date: 07/25/2016Mammogram| Service Date: 03/15/2016Mammogram| Service Date: 03/07/2016Wrist X-ray| Service Date: 11/15/2015Venous doppler| Service Date: 10/28/2015Right wrist x-ray| Service Date: 10/28/2015Mammogram| Service Date: 03/04/2015Procedure| Service Date: 03/02/2015Procedure| Service Date: 01/19/2014Mammogram - screening| Service Date: 01/12/2014rthroscopy of knee| Service Date: 11/26/2008Colonoscopy| Service Date: 07/21/2007Jaw surgery| Service Date: 1984Tonsillectomy| Service Date: 1966 Medications aspirin(Aspirin Low Dose 81 mg oral delayed release tablet), 81 mg= 1 tab, PO, Daily calcium-vitamin D(Calcium 600+D oral tablet), 1 tab, PO, Daily cholecalciferol(Vitamin D3), 2000 Int_Unit, PO, Daily chondroitin-glucosamine(Chondroitin-Glucosamine), 1 cap, PO, Daily losartan(losartan 25 mg oral tablet), 1 tab, PO, Daily multivitamin, 1 tab, PO, Daily rosuvastatin(Crestor 10 mg oral tablet), 10 mg= 1 tab, PO, Daily ubiquinone(Co Q-10) Allergies Allergy Not found in Search lisinoprilcough penicillinrash sulfa drugsswelling Social History Smoking Status Never smoked cigarettes Alcohol - Denies Alcohol Use Exercise - Regular exercise Exercise type:Walking Tobacco - Denies Tobacco Use Family History Breast cancer: Sister. Diabetes mellitus: Mother and Sister. Heart attack: Father. Heart disease: Father. Heart disease: Brother. Kidney cancer, primary, with metastasis from kidney to other site: Mother. Lung cancer: Mother. Health Status Family Member(s) Family Member(s) Relationship: Mother, Age: Unknown, Cause: Cancer Relationship: Father, Age: 100 Years Immunizations Vaccine Date Status RSV vaccine, preF A-preF B, recombinant 06/06/2024 Recorded influenza virus vaccine, inactivated 06/06/2024 Recorded influenza virus vaccine, inactivated 05/11/2023 Recorded tetanus/diphtheria/pertuss, acel (Tdap) 03/13/2023 Given SARS-CoV-2 mRNA (tozinameran 5y-11y) 06/27/2021 Recorded SARS-CoV-2 (COVID-19) mRNA BNT-162b2 vax 06/21/2021 Recorded influenza virus vaccine, inactivated 05/30/2021 Given zoster vaccine, inactivated 05/19/2021 Given zoster vaccine, inactivated 03/04/2021 Given SARS-CoV-2 (COVID-19) mRNA BNT-162b2 vax 11/14/2020 Recorded Comments : 2021-03-04: Historical information-source unspecified SARS-CoV-2 (COVID-19) mRNA BNT-162b2 vax 10/24/2020 Recorded Comments : 2021-03-04: Historical information-source unspecified influenza virus vaccine, inactivated 06/06/2020 Given pneumococcal 23-valent vaccine 06/24/2018 Given influenza virus vaccine, inactivated 05/26/2018 Recorded pneumococcal 13-valent vaccine 07/23/2016 Given influenza virus vaccine, inactivated 06/04/2016 Recorded zoster vaccine live 01/12/2014 Given tetanus/diphtheria/pertuss, acel (Tdap) 06/26/2013 Given influenza virus vaccine, H1N1 09/21/2009 Recorded Comments : 2021-03-04: Historical information-source unspecified Recommendations Health Maintenance Pending(in the next year) Due Adult COVID-19 Vaccination due08/05/24Unknown Frequency Adult Social Determinants of Health Screening due08/05/24Unknown Frequency Medicare Annual Wellness Visit due08/05/24and every 1year Due In Future Adult Influenza Vaccine not due until02/22/25and every 1year Satisfied(in the past 1 year) Satisfied Adult Influenza Vaccine on06/06/24.Satisfied by VITALIY Mckeon, Odalys Body Mass Index on08/05/24.Satisfied by LISETTE Kaplan Kirsten Breast Cancer Screening on06/08/24.Satisfied by AMINA Nash Lynnae Electronic Signature on File Electronically Reviewed/Signed by: ARGELIA Heaton Author Signature Dt/Tm:08/05/2024 12:19 PM Family Medicine DBN Patient Care team information Care Team Personnel Name: MD Sharp Juan Position: Physician - Family Med Member Role: Primary Care Provider Address: [address] [place] [address], [place] [address] Name: MD Gorman Ravishankar E Position: Physician Member Role: Lifetime Relationship Address: [address] [place] [address], [place] [address] Name: Елена Lynn Position: HIS Supervisor_P Member Role: HIS Lifetime Care Team Related Persons Name: KARLY LARA Name: KARLY LARA"
--- OUTSIDE RECORDS SUMMARY | 2024-09-10 02:55 | External Medical Summary | Continuity of Care Document ---
Author Name Unknown Organization [facility] [address] [place] [address] LUDY GARCÍA [id number] Care Team Providers Care Machine Packager Name Role Phone Lila, Osmin Primary Care Physician [phone] [id number] Date(s): 08/25/24 - 08/25/24 [facility] [place] - [address], [address], [address] LUDY Juarez [address] [phone] Discharge Disposition: Home or Self Care Attending Physician: DO Araya Jason D Referring Physician: DO Araya Jason D Allergies, Adverse Reactions, Alerts Substance Criticality Severity Reaction Reaction Severity Status penicillin rash Active lisinopril cough Active sulfa drugs swelling Active Allergy Not found in Search 1 Active 1hair dye- termination clerk jv Immunizations Given and Recorded Vaccine Date Status [...] acel (Tdap) 06/26/13 G iven SARS-CoV-2 mRNA (tozinameran 5y-11y) 06/27/21 Isaiah rded SARS-CoV-2 (COVID-19) mRNA [...] Daily, Disp# 90 tab, Refills: 3, Pharmacy: [id number] Start Date: 02/26/24 Status: Ordered multivitamin Start: 07/23/16 8:12:00 AM EST, 1 tab, PO, Daily Start Date: 07/23/16 Status: Ordered Suprep Bowel Prep Kit 1.6 g-3.13 g-17.5 g/177 mL oral liquid Start: 08/13/24 12:10:00 PM EST, See Instructions, Disp# 354 mL, Refills: 0, Follow instructions given to [facility] by [facility] Pharmacy: [id number] Start Date: 08/13/24 Status: Ordered Vitamin D3 Start: 07/23/16 8:12:00 AM EST, 2,000 Int_Unit =, PO, Daily Start Date: 07/23/16 Status: Ordered Problem List Condition Confirmation Course Effective Dates Status H ealth Status Informant LINNEA positive 1, 2 Confirmed Active CAD in [place] artery 3 Confirmed Active CVA (cerebral vascular [...] Dr. Araya 4brain MRI on 07/11/2021 in [facility] showed small acute infarctin right centrum semiovale and preventral gyrus: caused left arm weakness. 5left 6left 13703: normal 8US in 06/2106: No significant abnormality is identified. There has been no change from 07/13/2013. No need fro further testing. 9thyroid nodules stable for a few year. will repeat in 2 years 10US in 06/2013: several small noduels. largest 5mm Procedures Procedure Date Related Diagnosis Body Site [...] screening 28 01/12/14 Completed Arthroscopy of knee 11/26/08 Co mpleted Colonoscopy 07/21/07 Completed Jaw surgery 1983 Completed Tonsillectomy 1966 Completed 1AP SPine L1-L4 T Score 0.2 Femur Neck Left T Score -1.4 Femur Neck Right T Score -1.7 Femur Total Left T Score -1.5 Femur Total Right T Score -1.3 Z Score 0.2 Major Osteoporotic 9.7% Hip 2.0% 2Performed in [place] 3There is no mammographic evidence of malignancy. [...] breast indeterminate, additional views recommended 29left 30normal Social History Social History Type Response Smoking Status Never smoked cigaret luis antonio Sex Sex Representation Female (finding) Patient Care team information Care Team Personnel Name: MD Sharp Juan Position: Physician - Family Med Member Role: Primary Care Provider Address: [address] [place] [address], [place] [address] Name: MD Sherif, Nancy Chaney Position: Physician Member Role: Lifetime Relationship Address: [address] [place] [address], [place] [address] Name: Елена Lynn Position: HIS Supervisor_P Member Role: HIS Lifetime Care Team Related Persons Name: KARLY LARA Name: KARLY LARA
--- NOTE | 2024-09-10 04:42 | Billing Data ---
Date of Service September 10, 2024 Coding Level of Care Code 17040 INT INP/OBS CARE
[2024-09-10 06:44] LABS: Basophils # (auto) 0.03 K/uL (0.00-0.20); Basophils % (auto) 0.9 %; Eosinophils # (auto) 0.12 K/uL (0.00-0.50); Eosinophils % (auto) 3.5 %; Hematocrit (blood only) 33.9 % (37.0-47.0); Hemoglobin 11.3 g/dl (12.0-16.0); Lymphocytes # (auto) 0.97 K/uL (1.20-3.40); Lymphocytes % (auto) 28.4 %; Mean Corpuscular Hemoglobin 29.7 pg (25.0-34.0); Mean Corpuscular Hgb Conc 33.3 g/dL (32.0-36.0); Mean Corpuscular Volume 89.2 fL (80.0-100.0); Mean Platelet Volume 9.4 fL (9.4-12.4); Monocytes # (auto) 0.27 K/uL (0.11-0.59); Monocytes % (auto) 7.9 %; Neutrophils # (auto) 2.03 K/uL (1.40-6.50); Neutrophils % (auto) 59.3 %; Platelet Count 264 K/uL (130-400); RDW Coefficient of Variation 12.7 % (11.5-14.5); RDW Standard Deviation 41.9 fL (36.4-46.3); White Blood Count 3.42 K/ul (4.8-10.8)
[2024-09-10 07:08] LABS: Estimated Average Glucose 128 mg/dl; Hemoglobin A1C 6.1 % (4.5-5.6)
[2024-09-10 07:13] LABS: BUN Creatinine Ratio 18.8 (10-20); Calcium 9.3 mg/dl (8.6-10.3); Chol HDL Ratio 2.1 (0-5); Creatinine Clr Calc Pharmacy 66.6 ml/min; Potassium 3.9 mmol/L (3.5-5.1)
[2024-09-10] MEDS: ROSUVASTATIN CALCIUM 20 MG TAB PO SCH (08:48)
[2024-09-10] MEDS: ASPIRIN 81 MG ECTAB PO SCH (08:48)
[2024-09-10] MEDS ORDERED: LOSARTAN POTASSIUM 25 MG TAB PO SCH (09:00)
--- NOTE | 2024-09-10 10:07 | XRay Report ---
XR lumbar spine 2-3V CLINICAL HISTORY: right leg weakness; hx lumbar spine injury TECHNIQUE: 3 views of the lumbar spine were obtained. Comparison: Comparison is made to MRI lumbar spine 03/12/2012 FINDINGS: There is no evidence of an acute fracture. Degenerative changes are seen in the lumbar spine with ost eophyte formation and disc space narrowing. Mild levocurvature is seen measuring approximately 15 deg apolinar. No soft tissue abnormality is seen. IMPRESSION: Degenerative changes as above without acute fracture or subluxation. ACT 112: Negative or not required by law. Electronically signed by: Rainer Abdalla M.D. 09/10/2024 10:05 AM
--- NOTE | 2024-09-10 12:48 | Hospitalist Progress Note ---
Date of Service September 10, 2024 Assessment & Plan (1) High blood pressure: Plan: -con't losartan (2) High cholesterol: Plan: -Crestor (3) Transient weakness of right lower extremity: Plan: -Awaiting MRI brain -TTE -con't asa, statin -PT/OT pending Plan Patient is a 74 y/o F w/ PMHx of HTN, HLD, Hx of CVA in 2020 (follows neurology [facility]), and Hx of lumbar injury who comes to ED due to weakness and shakiness in her right leg that occurred at around 5:10 pm today. Admitted for work up of CVA versus TIA versus lumbar radiculopathy. Transient weakness of right LE - Patient w/ known hx of CVA, was told by PCP and neurologist to come in due to her sxs earlier today - Head imaging negative; neck CTA with mild plaque that does not cause significant changes in flow - Patient stated that she still felt heaviness in her right LE when I walked in the room but then noted that maybe it resolved, so still possible this may have been a TIA, although hx of lumbar trauma could make lumbr radiculopathy another potential cause - Will order brain MRI - Will order lumbar spine XR - Will order TTE - Will order fasting lipid profile and Hgb A1c - Continue ASA 81 mg, increase Rosuvastatin dose to 20 mg - PT/OT consulted - Admit to PCU HTN - Continue home losartan 25 mg HLD - Rosuvastatin as mentioned above Chronic hyponatremia - Sodium of 130 on admission labs - Patient has had low sodium consistently in previous labs done by PCP as well - Ordered U/Osm, serum Osm, and urine sodium - Monitor am labs Dispo: PCU/Tele Fluids: none VTE ppx: SCD Code Status: FULL CODE Admission and Anticipated Discharge Date Admission Date: September 09, 2024 Subjective Pt states symptoms have resolved. Awaiting MRI, and echo this morning. Review of Systems Review of Systems: CONST: Negative for fever, body aches and chills. HENT: Negative for neck pain/stiffness, headache, congestion, sore throat, swelling. EYES: Negative for discharge/pain or vision changes. RESP: Negative for cough/hemoptysis and shortness of breath. CV: Negative chest pain, difficulty breathing, palpitations. ABD: Negative pain, nausea, vomiting. : Negative increase frequency, dysuria, blood in urine or stool. MUSC: Negative for muscle aches, edema. SKIN: Negative rash, lesions/sores. NEURO: Negative headache, dizziness, weakness. Physical Exam Physical Exam: GENERAL APPEARANCE NAD, activity normal for age, well developed/ well nourished, no cyanosis, pallor, or diaphoresis. EYES lids/conjunctiva normal. EARS/NOSE/THROAT Mucous membranes moist, nares normal, lips/teeth normal uvula midline without oral pharyngeal erythema, exudate or swelling TMs normal bilaterally. No lymphangitis/lymphedema. HEAD/NECK normocephalic atraumatic, no facial trauma, neck is supple. RESPIRATORY respiratory effort normal, speaks in full sentences, no tripod position, no accessory muscle use. Lungs clear to auscultation without rhonchi, wheezes, rales CARDIAC Regular rate and rhythm, no edema. ABDOMINAL Soft, ND/NT. No evidence of fluid wave. No pulsatile masses on exam, rebound tenderness, Trejo sign or pain over Mcburney's point. MUSCLES/EXTREMITIES No abnormal range of motion, no swelling. SKIN Warm, pink and dry. No rashes, dermatoses, petechiae or lesions. NEUROLOGICAL Speech is clear and appropriate. Normal level of consciousness. Gait and coordination are normal. 5/5 strength in all extremities. PSYCH Normal mood and affect. Judgement/competence is appropriate Results & Data Results & Data Vital Signs (Past 12 Hours) Vital Signs Temp Pulse Pulse Resp BP Pulse Ox O2 Del Method 09/10/24 10:42 36.6 C 72 18 134/76 97 Room Air 09/10/24 07:49 36.6 C 78 18 144/68 H 97 Room Air 09/10/24 07:17 73 09/10/24 03:00 36.7 C 66 17 138/77 98 Room Air PG Care Time/CCT Total # of Minutes Spent Total Time Spent with Patient: Total time spent is greater than 50% in coordination of care (as documented) at patient's floor/unit and/or counseling patient: Coding Level of Care Code 96944 SUB INP/OBS CARE 2/35MIN Diagnoses High blood pressure I10 High cholesterol E78.00 Transient weakness of right lower extremity R29.898
--- NOTE | 2024-09-10 14:05 | XCELERA ---
[id number] \\[email or web address]\[id number]
--- NOTE | 2024-09-10 18:46 | Discharge Summary ---
Discharge Summary Date of Service September 10, 2024 Principal Dx & Hospital Course #1 = Principal Diagnosis (1) High blood pressure: -con't losartan (2) High cholesterol: -Crestor (3) Transient weakness of right lower extremity: -Awaiting MRI brain -TTE -con't asa, statin -PT/OT pending Plan Patient is a 74 y/o F w/ PMHx of HTN, HLD, Hx of CVA in 2020 (follows neurology [facility]), and Hx of lumbar injury who comes to ED due to weakness and shakiness in her right leg that occurred at around 5:10 pm today. Admitted for work up of CVA versus TIA versus lumbar radiculopathy. Transient weakness of right LE - Patient w/ known hx of CVA, was told by PCP and neurologist to come in due to her sxs earlier today - Head imaging negative; neck CTA with mild plaque that does not cause significant changes in flow - Patient stated that she still felt heaviness in her right LE when I walked in the room but then noted that maybe it resolved, so still possible this may have been a TIA, although hx of lumbar trauma could make lumbr radiculopathy another potential cause - Will order brain MRI - Will order lumbar spine XR - Will order TTE - Will order fasting lipid profile and Hgb A1c - Continue ASA 81 mg, increase Rosuvastatin dose to 20 mg - PT/OT consulted - Admit to PCU HTN - Continue home losartan 25 mg HLD - Rosuvastatin as mentioned above Chronic hyponatremia - Sodium of 130 on admission labs - Patient has had low sodium consistently in previous labs done by PCP as well - Ordered U/Osm, serum Osm, and urine sodium - Monitor am labs Dispo: PCU/Tele Fluids: none VTE ppx: SCD Code Status: FULL CODE Admission HPI Per Admitting Provider Patient is a 74 y/o F w/ PMHx of HTN, HLD, Hx of CVA in 2020 (follows neurology [facility]), and Hx of lumbar injury who comes to ED due to weakness and shakiness in her right leg that occurred at around 5:10 pm today. Patient states that she was walking back to her car after working out in a gym and started feeling shakiness in her right LE as well as mild weakness, due to which she had to lean against a nearby wall for support. Symptoms resolved spontaneously in 30 seconds. Denies having weakness in other extremities, vision changes, headache, trouble with speech, chest pain, SOB, dizziness, LOC, or any other symptom. Patient has hx of CVA in 2020 that involved her left UE but has minimal to no residual sxs and follows neurology in [facility]. Other hx remarkable for lumbar injury a few years ago that was managed conservatively (no surgery). When evaluated at bedside, patient states she feels some residual heaviness in her right LE, but when asked to lift it against gravity, patient states "maybe it's gone now". ED Course: Given 243 mg ASA to complete 324 mg aspirin dose (takes ASA 81 mg daily) Labs/Imaging: CBC w/o leukocytosis, Hgb of 12 (baseline), and plt of 281. CMP remarkable for hyponatremia of 130 and no other electrolyte abnormalities, renal markers wnl, LFTs unremarkable. U/S unremarkable. Head CT and CTA negative for acute changes, Neck CTA w/ mild plaque in b/l carotid bulbs. Medical History: [Reviewed] Medications: [Reviewed] Surgical History: [Reviewed] Family history: [Reviewed] Allergies: [Reviewed] Social History: [Reviewed] Discharge Exam GENERAL APPEARANCE NAD, activity normal for age, well developed/ well nourished, no cyanosis, pallor, or diaphoresis. EYES lids/conjunctiva normal. EARS/NOSE/THROAT Mucous membranes moist, nares normal, lips/teeth normal uvula midline without oral pharyngeal erythema, exudate or swelling TMs normal bilaterally. No lymphangitis/lymphedema. HEAD/NECK normocephalic atraumatic, no facial trauma, neck is supple. RESPIRATORY respiratory effort normal, speaks in full sentences, no tripod position, no accessory muscle use. Lungs clear to auscultation without rhonchi, wheezes, rales CARDIAC Regular rate and rhythm, no edema. ABDOMINAL Soft, ND/NT. No evidence of fluid wave. No pulsatile masses on exam, rebound tenderness, Trejo sign or pain over Mcburney's point. MUSCLES/EXTREMITIES No abnormal range of motion, no swelling. SKIN Warm, pink and dry. No rashes, dermatoses, petechiae or lesions. NEUROLOGICAL Speech is clear and appropriate. Normal level of consciousness. Gait and coordination are normal. 5/5 strength in all extremities. PSYCH Normal mood and affect. Judgement/competence is appropriate Discharge Plan Discharge Items Patient Disposition: Home - Self-Care Reason For Visit: RIGHT LE WEAKNESS Discharge Diagnosis: Right leg weakness Activity: Resume your previous activity Non-emergency contact: Primary Care Provider Call non-emergency contact if: you have any medication questions Follow-up/Referrals: Osmin Sharp MD [Primary Care Provider] - Diet: Regular Addtl Attending Provider Instructions: Follow up with pmh in 1 week Pending Studies at Discharge: No Stand-Alone Forms: My [employer], Smoking Cessation, Medications to Prevent Stroke Medications and DC Order Prescriptions: New aspirin 81 mg Tablet,Delayed Release (Dr/Ec) 81 mg PO QAM Qty: 30 0RF Continued losartan 25 mg tablet 25 mg PO DAILY rosuvastatin 10 mg tablet 10 mg PO HS Discharge Orders: Discharge Order (Routine); Ordered 09/10/24 Ordered By: Aquilino Solis/Other Patient Handouts: A1C Admission Data Admit Date/Time: 09/09/24 22:31 Attending Provider: Aquilino Ramsey Admit Provider: Lisa Castillo Primary Care Provider: Osmin Sharp Other Providers: Rogerio Benítez Hospital Stay Data Consultations 09/09/24 21:55 ED Decision to Admit Stat Diagnostic Imagining Performed 09/09/24 19:29 CT angio head w con Stat CT angio neck with con Stat CT head/brain wo con Stat 09/10/24 00:29 MR brain wo con Routine Pending Results Patient Have Any Pending Studies at Discharge: No Discharge Instructions Given to Patient (Per Discharging Provider) Follow up with pmh in 1 week Total Time Total Time Spent Total Time Spent (In Minutes): 50 Coding Level of Care Code 04478 INP/OBS DISCH >30 MIN Diagnoses High blood pressure I10 High cholesterol E78.00 Transient weakness of right lower extremity R29.898
--- NOTE | 2024-09-10 19:17 | Magnetic Resonance Report ---
Exam(s): MRI HEAD Without Contrast EXAM: MR Head Without Intravenous Contrast CLINICAL HISTORY: Reason for exam: CVA versus TIA. TECHNIQUE: Magnetic resonance images of the head/brain without intravenous contrast in multiple planes. COMPARISON: CT head 09/09/24 FINDINGS: Brain: No diffusion restriction to suggest acute cerebral ischemia. Proximal intracranial flow voids appear normal. Age-related cortical cerebral volume loss. No acute intracranial hemorrhage. No mass-effect or shift. Chronic lacunar infarct right centrum semiovale. Foci of FLAIR signal hyperintensity in the cerebral white matter in keeping with mild chronic small vessel ischemic change. Ventricles: Unremarkable. No hydrocephalus. Bones/joints: Unremarkable. No acute fracture. Sinuses: Unremarkable as visualized. Mastoid air cells: Unremarkable as visualized. No mastoid effusion. Orbits: Unremarkable as visualized. IMPRESSION: No acute findings in the head/brain. Electronically signed by: Jessica Chandler M.D. 09/10/24 19:16 PM
--- NOTE | 2024-09-11 22:30 | Electrocardiogram Report ---
Test Reason : Blood Pressure : */* mmHG Vent. Rate : 75 BPM Atrial Rate : 75 BPM P-R Int : 144 ms QRS Dur : 74 ms QT Int : 400 ms P-R-T Axes : 51 52 61 degrees QTcB Int : 446 ms Normal sinus rhythm Possible Septal infarct , age undetermined Abnormal ECG When compared with ECG of 17-Nov-2008 11:33, No significant change Reconfirmed by Jeramy uStton ([id number]) on 09/11/2024 10:30:44 PM Referred By: REFERRED SELF Confirmed By: Jeramy Sutton
== END 2024-09-10 20:00 | disposition home or self-care (01) ==
LOC: ED 18:52 → 2S 18:52 → SUATTDRO 22:31 → 2S 23:57
DX: Z88.2 Allergy status to sulfonamides; I10 Essential (primary) hypertension; Z88.0 Allergy status to penicillin; E87.1 Hypo-osmolality and hyponatremia; R53.1 Weakness; E78.5 Hyperlipidemia, unspecified; Z79.899 Other long term (current) drug therapy; Z86.73 Personal history of transient ischemic attack (TIA), and cerebral infarction without residual deficits